=== PATIENT | female | born 1985 | race Caucasian/White ===

== ENCOUNTER 2016-07-01 20:26 | Emergency (ER) | payer MEDICAID ==
[2016-07-01] MEDS ORDERED: Sodium Chloride 0.9% 1,000 ML IV ONE (20:29)
[2016-07-01] MEDS ORDERED: Dexamethasone Sodium Phos 4 mg/mL Vial IVP STA (20:29)
[2016-07-01] MEDS ORDERED: Prochlorperazine 5 mg/mL 2mL Vial IVP STA (20:29)
--- NOTE | 2016-07-01 20:29 | ED Physician Chart ---
Chief Complaint/HPI - Patient Information Date Seen:: 07/01/16 Time Seen:: 20:29 Chief Complaint:: headache History of Present Illness:: 30-year-old female, remote history of migraine headaches, complains of acute, constant, nonradiating, moderate to severe, 8 out of 10 at worst, nonradiating, generalized right sided and posterior headache 4 days. Has associated photophobia. Denies nausea, vomiting, acute vision changes, head trauma or injury, neck trauma or injury, chest pain, palpitations, abdominal pain, dysuria. Historian:: Patient Review:: Nurse's Note Reviewed Review of Systems - Review of Systems Other: Complete system review otherwise unremarkable except as noted in history of present illness. Past Medical History - Past Medical History Past Medical History: Other (remote history of migraines) Family History: None Social History: Non Smoker, No Alcohol, No Drug Use, Employed Surgical History: Psychiatricy History: None Medication: None Family Medical History - Family Member Mother History Unknown: Yes Physical Exam - Physical Examination Other:: INITIAL VITAL SIGNS: Reviewed by me GENERAL: Alert and interactive. No acute distress HEAD: Head is normocephalic and atraumatic EYES: EOMI. PERRL. No scleral icterus. No conjunctival injection ENT: Moist mucous membranes. NECK: Supple. No masses. Full range of motion RESPIRATORY: No tachypnea. Clear breath sounds bilaterally. No wheezing, rales, or rhonchi CV: Regular rate and rhythm. No murmurs, rubs, or gallops ABDOMEN: Soft, non-distended, non-tender. No guarding. No rebound. No masses. EXTREMITIES: No deformity. No cyanosis. No edema. SKIN: Warm and dry. No obvious rashes. NEUROLOGIC: Alert and oriented. Face is symmetric. Speech is normal. Moves all extremities equally. Motor and sensory distally intact. Labs/Radiology/EKG Results - Lab Results Results: Lab Results 07/01/16 07/01/16 07/01/16 Range/Units 20:45 20:45 20:46 WBC 10.9 H (4.8-10.8) Th/cmm RBC 4.50 (3.80-5.10) Mil/cmm Hgb 11.2 L (11.7-15.5) gm/dL Hct 33.8 L (35.0-45.0) % MCV 75.1 L (81-100) fl MCH 24.9 L (27.0-31.0) pg MCHC Differential 33.2 (28.0-36.0) pg RDW 15.9 (11.5-20.0) % Plt Count 366 (150-400) Th/cmm MPV 8.5 fl Neutrophils % 71.9 (40.0-80.0) % Lymphocytes % 20.1 (20.0-50.0) % Monocytes % 6.1 (2.0-10.0) % Eosinophils % 1.7 (0.0-5.0) % Basophils % 0.2 (0.0-2.0) % Sodium (136-145) mEq/L Potassium (3.5-5.1) mEq/L Chloride (98-107) mEq/L Carbon Dioxide (21.0-31.0) mEq/L Anion Gap (7.0-16.0) BUN (7-25) mg/dL Creatinine (0.6-1.2) mg/dL Est GFR ( Amer) (>90) ml/min Est GFR (Non-Af Amer) ml/min BUN/Creatinine Ratio Glucose (70-105) mg/dL Calcium (8.6-10.3) mg/dL Serum , Qual (NEGATIVE) Urine Source CLEAN C Urine Color YELLOW Urine Clarity CLEAR (CLEAR) Urine pH 6.5 Ur Specific [place] 1.025 (1.005-1.030) Urine Protein NEGATIVE (NEGATIVE) mg/dL Urine Glucose (UA) NEGATIVE (NEGATIVE) mg/dL Urine Ketones TRACE (NEGATIVE) mg/dL Urine Blood NEGATIVE (NEGATIVE) Urine Nitrate NEGATIVE (NEGATIVE) Urine Bilirubin NEGATIVE (NEGATIVE) Urine Urobilinogen 0.2 (0.2 - 1.0) E.U./dL Ur Leukocyte Esterase NEGATIVE (NEGATIVE) Urine Test NEGATIVE 07/01/16 07/01/16 Range/Units 20:46 20:46 WBC (4.8-10.8) Th/cmm RBC (3.80-5.10) Mil/cmm Hgb (11.7-15.5) gm/dL Hct (35.0-45.0) % MCV (81-100) fl MCH (27.0-31.0) pg MCHC Differential (28.0-36.0) pg RDW (11.5-20.0) % Plt Count (150-400) Th/cmm MPV fl Neutrophils % (40.0-80.0) % Lymphocytes % (20.0-50.0) % Monocytes % (2.0-10.0) % Eosinophils % (0.0-5.0) % Basophils % (0.0-2.0) % Sodium 137 (136-145) mEq/L Potassium 3.8 (3.5-5.1) mEq/L Chloride 106 (98-107) mEq/L Carbon Dioxide 28.5 (21.0-31.0) mEq/L Anion Gap 6.3 L (7.0-16.0) BUN 16 (7-25) mg/dL Creatinine 0.8 (0.6-1.2) mg/dL Est GFR ( Amer) > 60.0 (>90) ml/min Est GFR (Non-Af Amer) > 60.0 ml/min BUN/Creatinine Ratio 20.0 Glucose 119 H (70-105) mg/dL Calcium 9.0 (8.6-10.3) mg/dL Serum , Qual NEGATIVE (NEGATIVE) Urine Source Urine Color Urine Clarity (CLEAR) Urine pH Ur Specific [place] (1.005-1.030) Urine Protein (NEGATIVE) mg/dL Urine Glucose (UA) (NEGATIVE) mg/dL Urine Ketones (NEGATIVE) mg/dL Urine Blood (NEGATIVE) Urine Nitrate (NEGATIVE) Urine Bilirubin (NEGATIVE) Urine Urobilinogen (0.2 - 1.0) E.U./dL Ur Leukocyte Esterase (NEGATIVE) Urine Test ED Septic Shock - . Is Septic Shock (SBP<90, OR Lactate>4 mmol\L) present?: No Reassessment (Disposition) - Reassessment Reassessment:: Patient presents with cephalalgia. No indication that there is any history of trauma or injury to the head or neck. Has a remote history of migraine headaches. Has associated photophobia. No neurological deficits. Symptoms seem consistent with migraine headache. Gave IV Toradol, Decadron, Compazine. Symptoms did improve. Follow-up PCP 1-2 days. Return to ER precautions given. Patient understands and agrees with the plan. Reassessment Condition:: Improved - Diagnosis Diagnosis:: Acute cephalalgia due to migraine headache with photophobia - Aftercare/Follow up Instructions Aftercare/Follow-Up Instructions:: Counseled pt regarding lab results/diagnosis & need follow up, Refer to Discharge Instructions - Patient Disposition Discharge/Transfer:: Home Time:: 21:36 Condition at Disposition:: Improved ED Discharge Plan - Patient Disposition Admit/Discharge/Transfer: PT DISCHARGED HOME Condition at Disposition: Improved Instructions: Migraine Headache, [id number]
[2016-07-01 20:57] LABS: % BASOPHILS 0.2 % (0.0-2.0); % EOSINOPHILS 1.7 % (0.0-5.0); % LYMPHOCYTES 20.1 % (20.0-50.0); % MONOCYTES 6.1 % (2.0-10.0); % NEUTROPHILS 71.9 % (40.0-80.0); HEMATOCRIT 33.8 % (35.0-45.0); HEMOGLOBIN 11.2 gm/dL (11.7-15.5); MEAN CELL VOLUME 75.1 fl (81-100); MEAN CORPUSCULAR HEMOGLOBIN 24.9 pg (27.0-31.0); MEAN CORPUSCULAR HGB CONC 33.2 pg (28.0-36.0); MEAN PLATELET VOLUME 8.5 fl; NEUTROPHILE ABSOLUTE 7.8 Th/cmm (1.8-8.0); PLATELET COUNT 366 Th/cmm (150-400); RED CELL DISTRIBUTION WIDTH 15.9 % (11.5-20.0); WHITE BLOOD COUNT 10.9 Th/cmm (4.8-10.8)
[2016-07-01 21:10] LABS: ANION GAP 6.3 (7.0-16.0); BUN - UREA NITROGEN 16 mg/dL (7-25); CARBON DIOXIDE 28.5 mEq/L (21.0-31.0); CHLORIDE 106 mEq/L (98-107); CREATININE - SERUM 0.8 mg/dL (0.6-1.2); GLUCOSE 119 mg/dL (70-105); POTASSIUM SERUM 3.8 mEq/L (3.5-5.1); SODIUM SERUM 137 mEq/L (136-145)
[2016-07-01] MEDS ORDERED: Dexamethasone Sodium Phos 10 mg/mL PF Vial ONE (21:11)
[2016-07-01] MEDS ORDERED: Prochlorperazine 5 mg/mL 2mL Vial ONE (21:11)
[2016-07-01 21:33] LABS: URINE BILIRUBIN NEGATIVE (NEGATIVE); URINE COLOR YELLOW; URINE GLUCOSE (UA) NEGATIVE (NEGATIVE); URINE KETONE TRACE mg/dL (NEGATIVE)
[2016-07-01 21:34] LABS: URINE BACTERIA FEW /hpf (NONE SEEN); URINE BLOOD NEGATIVE (NEGATIVE); URINE EPITHELIAL CELLS FEW /lpf (FEW); URINE PH 6.5; URINE PROTEIN NEGATIVE (NEGATIVE); URINE RBC 0-2 /hpf (0-5); URINE UROBILINOGEN 0.2 E.U./dL (0.2 - 1.0); URINE WBC 0-2 /hpf (0-5)
== END 2016-07-01 22:10 | disposition home or self-care (01) ==
LOC: ER 20:26
DX: G43.909 Migraine, unspecified, not intractable, without status migrainosus (principal); H53.149 Visual discomfort, unspecified
CPT/HCPCS: 36415-UA; 80048-TC; 81001-TC; 81025-TC; 85025-TC; 96374; 96375; J0780; J1885; J7030; Z7502

== ENCOUNTER 2016-10-02 17:23 | Emergency (ER) | payer MEDICAID ==
[2016-10-02] MEDS ORDERED: Sodium Chloride 0.9% 1,000 ML IV ONE (17:38)
--- NOTE | 2016-10-02 17:44 | ED Physician Chart ---
Chief Complaint/HPI - Patient Information Date Seen:: 10/02/16 Time Seen:: 17:30 Chief Complaint:: Vertigo History of Present Illness:: Onset x 3 days of Vertigo, near-syncope, N/V, dizziness, and diffuse H/As; Hx of Migraine H/As; pt denies LOC, ALOC, AMS, syncope, tinnitus, hearing loss, E/ As, S/T, cough, Neck pain, Chest Pain, Dyspnea, Abd. pain, A/D/C, fever, chills , or urinary s/s Allergies:: Allergies Allergy/AdvReac Type Severity Reaction Status Date / Time No Known Allergies Allergy Verified 07/01/16 20:31 Vitals:: Vital Signs - 8 hr 10/02/16 17:31 Temp 98.1 F HR 97 RR 16 BP 135/79 O2 Sat % 98 Historian:: Patient Review:: Nurse's Note Reviewed Review of Systems - Review of Systems General/Constitutional: Fever, Chills, No weight loss, No weakness, No diaphoresis, No edema, No loss of appetite Skin: No skin lesions, No rash, No bruising Head: Headache, Light headed Eyes: No loss of vision, No pain, No diplopia ENT: No earache, No nasal drainage, No sore throat, No tinnitus Neck: No neck pain, No swelling, No thyromegaly, No stiffness, No mass noted Cardio Vascular: No chest pain, No palpitations, No PND, No orthopnea, No edema Pulmonary: No SOB, No cough, No sputum, No wheezing GI: Nausea, Vomiting, Diarrhea, No pain, No melena, No hematochezia, No constipation, No hematemesis G/U: No dysuria, No frequency, No hematuria [employer]er: No vaginal discharge, No abnormal vaginal bleed, No contraction Musculoskeletal: No bone or joint pain, No back pain, No muscle pain Endocrine: No polyuria, No polydipsia Psychiatric: No prior psych history, No depression, No anxiety, No suicidal ideation, No homicidal ideation, No auditory hallucination, No visual hallucination Hematopoietic: No bruising, No lymphadenopathy Allergic/Immuno: No urticaria, No angioedema Neurological: No syncope, No focal symptoms, No weakness, No paresthesia, Headache, No seizure, Dizziness, No confusion, Vertigo Past Medical History - Past Medical History Obtainable: Yes Past Medical History: No significant medical hx Family History: HTN Social History: Non Smoker, No Alcohol, No Drug Use, , Employed Surgical History: None Psychiatricy History: None Medication: Reviewed Family Medical History - Family Member Mother History Unknown: Yes Ethnicity: Hx Family Cancer: No Hx Family Congestive Heart Failure: No Hx Family Stroke: No Hx Family Seizures: No Hx Family AIDS: No Hx Family HIV: No Hx Family Psychiatric Problems: No Physical Exam - Physical Examination General/Constitutional: Awake, Well-developed, well-nourished, Alert, No distress, GCS 15, Non-toxic appearing, Ambulatory Head: Atraumatic Eyes: Lids, conjuctiva normal, PERRL, EOMI Skin: Nl inspection, No rash, No skin lesions, No ecchymosis, Well hydrated, No lymphadenopathy ENMT: External ears, nose nl, Nasal exam nl, Lips, teeth, gums nl Neck: Nontender, Full ROM w/o pain, No JVD, No nuchal rigidity, No bruit, No mass, No stridor Respiratory: Nl effort/Exclusion, Clear to Auscultation, No Wheeze/Rhonchi/Rales Cardio Vascular: RRR, No murmur, gallop, rubs, NL S1 S2 GI: No tenderness/rebounding/guarding, No organomegaly, No hernia, Normal BS's, Nondistended, No mass/bruits, No McBurney tenderness : No CVA tenderness Extremities: No tenderness or effusion, Full ROM, normal strength in all extremities, No edema, Normal digits & nails Neuro/Psych: Alert/oriented, DTR's symmetric, Normal sensory exam, Normal motor strength, Judgement/insight normal, Mood normal, Normal gait, No focal deficits Misc: normal gait, Normal back, No paraspinal tenderness Labs/Radiology/EKG Results - Lab Results Comments:: unremarkable - Radiology Results Results: NAD - EKG Interpretations Rate & Rhythm: NSR Comments:: non-specific st-t changes ED Septic Shock - . Is Septic Shock (SBP<90, OR Lactate>4 mmol\L) present?: No - <6hrs of presentation: Vital Signs: Vital Signs - 8 hr 10/02/16 17:31 Temp 98.1 F HR 97 RR 16 BP 135/79 O2 Sat % 98 Reassessment (Disposition) - Reassessment Reassessment:: pt is asymptomatic upon discharge Reassessment Condition:: Improved - Diagnosis Diagnosis:: Veertigo/Dizziness; Headaches; Near-Syncope, Vaso-Vagal Reaction; Migraine Headaches; Labyrinthritis; Vascular Cephalgia - Aftercare/Follow up Instructions Aftercare/Follow-Up Instructions:: Counseled pt regarding lab results/diagnosis & need follow up, Refer to Discharge Instructions, Counseled pt & family regarding lab results/diagnosis & need follow up - Patient Disposition Discharge/Transfer:: Home Condition at Disposition:: Stable, Improved (RTER prn if existing s/s reoccur and/or get worse and/or any other new s/s occur; ACIs given for all above Dx; X- Rays Instructions; Refer to ENT Specialist/Neurologist/Scrap [employer]yer SHADIA; F/U with PMD in one day or prn; RTER prn if concerned) ED Discharge Plan - Patient Disposition Instructions: Migraine Headache, [id number], Labyrinthitis (Inner Ear Inflammation)-Brief Additional Instructions: FOLLOW UP WITH YOUR PRIMARY MEDICAL DOCTOR SHADIA
[2016-10-02 17:54] LABS: % BASOPHILS 0.9 % (0.0-2.0); % EOSINOPHILS 1.3 % (0.0-5.0); % LYMPHOCYTES 19.7 % (20.0-50.0); % MONOCYTES 5.5 % (2.0-10.0); % NEUTROPHILS 72.6 % (40.0-80.0); HEMATOCRIT 32.1 % (35.0-45.0); HEMOGLOBIN 10.5 gm/dL (11.7-15.5); MEAN CELL VOLUME 73.5 fl (81-100); MEAN CORPUSCULAR HEMOGLOBIN 24.1 pg (27.0-31.0); MEAN CORPUSCULAR HGB CONC 32.9 pg (28.0-36.0); MEAN PLATELET VOLUME 7.8 fl; NEUTROPHILE ABSOLUTE 8.4 Th/cmm (1.8-8.0); PLATELET COUNT 347 Th/cmm (150-400); RED BLOOD COUNT 4.36 Mil/cmm (3.80-5.10); RED CELL DISTRIBUTION WIDTH 16.4 % (11.5-20.0); WHITE BLOOD COUNT 11.5 Th/cmm (4.8-10.8)
[2016-10-02 18:09] LABS: INR 0.97 (0.5-1.4); PROTHROMBIN TIME (TEST) 10.1 SECONDS (9.5-11.5)
[2016-10-02 18:13] LABS: ALB/GLOB RATIO 1.2 (1.0-1.8); ALKALINE PHOSPHATASE 77 U/L (34-104); ANION GAP 8.4 (7.0-16.0); BILIRUBIN,TOTAL 0.2 mg/dL (0.3-1.0); BUN - UREA NITROGEN 21 mg/dL (7-25); CALCIUM SERUM 9.2 mg/dL (8.6-10.3); CARBON DIOXIDE 26.4 mEq/L (21.0-31.0); CHLORIDE 103 mEq/L (98-107); CHOLESTEROL 130 mg/dL (<200); CREATININE - SERUM 0.7 mg/dL (0.6-1.2); GLUCOSE 158 mg/dL (70-105); POTASSIUM SERUM 3.8 mEq/L (3.5-5.1); SGOT 14 U/L (13-39); SGPT/ALT 15 U/L (7-52); SODIUM SERUM 134 mEq/L (136-145); TRIGLYCERIDES 171 mg/dL (<150)
[2016-10-02 18:14] LABS: AMYLASE SERUM 44 U/L (29-103); LIPASE 22 U/L (11-82)
[2016-10-02 18:36] LABS: TROP I < 0.01 ng/mL (0.01-0.05)
[2016-10-02 18:57] LABS: BNP 10.1 pg/mL (5.0-100.0)
--- NOTE | 2016-10-03 09:37 | Diagnostic Imaging Report ---
CT scan of the brain without contrast History: Dizziness, syncope, vertigo Total DLP equals 528 CTDI equals 33.4 Axial sections were obtained from the base of the skull to the vertex. There is a normal ventricular system size. No focal parenchymal lesions are seen. No evidence of any mass effect or shift of midline structures. No extra-axial masses or abnormal fluid collections. Impression: Negative examination
== END 2016-10-02 20:30 | disposition home or self-care (01) ==
LOC: ER 17:23
DX: R55 Syncope and collapse (principal); R42 Dizziness and giddiness; G43.909 Migraine, unspecified, not intractable, without status migrainosus; G44.1 Vascular headache, not elsewhere classified; H83.09 Labyrinthitis, unspecified ear
CPT/HCPCS: 36415-UA; 70450-TC; 80053-TC; 80061-TC; 82150-TC; 82550-TC; 83690-TC; 83880-TC; 84484-TC; 84703-TC; 85025-TC; 85610-TC; 93005; 94760; J7030